=== PATIENT | male | born 1945 | race Caucasian/White ===

== ENCOUNTER 2021-07-08 10:56 | Inpatient (IN) | payer OTHER ==
[~2021-07-08] VITALS: Ht 190.5 cm; Wt 128.2 kg
[2021-07-08 11:31] LABS: BASOPHILS ABSOLUTE AUTO 0.06 K/mm3 (0.00-0.23); BASOPHILS PERCENT AUTO 1 % (0-2); EOSINOPHILS ABSOLUTE AUTO 0.41 K/mm3 (0.00-0.68); EOSINOPHILS PERCENT AUTO 4 % (0-6); Hematocrit 41.5 % (37.0-53.0); Hemoglobin 14.3 g/dL (13.5-17.5); IMMATURE GRAN ABSOLUTE AUTO 0.09 K/mm3 (0.00-0.10); IMMATURE GRAN PERCENT AUTO 1 % (0-1); LYMPHOCYTES ABSOLUTE AUTO 3.58 K/mm3 (0.84-5.20); LYMPHOCYTES PERCENT AUTO 31 % (21-46); MONOCYTES ABSOLUTE AUTO 0.75 K/mm3 (0.16-1.47); MONOCYTES PERCENT AUTO 7 % (4-13); Mean Corpuscular HGB 30.2 pg (26.0-34.0); Mean Corpuscular HGB Conc 34.5 g/dL (31.5-36.5); Mean Corpuscular Volume 88 fL (80-100); NEUTROPHILS ABSOLUTE AUTO 6.65 K/mm3 (1.96-9.15); NEUTROPHILS PERCENT AUTO 58 % (41-73); Platelet Count 186 K/mm3 (150-400); RDW Standard Deviation 42.3 fL (35.1-46.3); Red Blood Cell Count 4.73 M/mm3 (4.30-5.90); White Blood Cell Count 11.54 K/mm3 (4.00-11.30)
[2021-07-08 11:52] LABS: Anion Gap 9 mmol/L (6-16); Blood Urea Nitrogen 21 mg/dL (8-24); Bun/Creatinine Ratio 19.1 (12.0-20.0); CO2, Blood 24 mmol/L (21-32); Calcium, Blood 8.7 mg/dL (8.5-10.1); Chloride, Blood 102 mmol/L (98-108); Glomerular Filtration Rate >60 (60-); Glucose, Blood 169 mg/dL (70-99); Magnesium, Blood 1.7 mg/dL (1.6-2.4); Potassium, Blood 3.8 mmol/L (3.5-5.5); Sodium, Blood 135 mmol/L (136-145); Troponin I <0.015 ng/mL (0.000-0.040)
[2021-07-08] MEDS ORDERED: CHLO25B PO (13:51)
[2021-07-08] MEDS ORDERED: LISI20 PO (13:52)
[2021-07-08] MEDS ORDERED: Flonase 0.05% N16 GM (13:52)
[2021-07-08] MEDS ORDERED: METO25ER PO (13:52)
[2021-07-08] MEDS ORDERED: Vitamin D1000 UNI1 PO (15:06)
[2021-07-08] MEDS ORDERED: STIOLTO RESPIMAT4 G1 INH (15:07)
[2021-07-08] MEDS ORDERED: XARELTO20 MG PO (15:08)
[2021-07-08] MEDS ORDERED: TAMS.4ER PO (15:08)
[2021-07-08 17:08] LABS: Source, Urine Clean Catch
[2021-07-08 17:21] LABS: Bilirubin, Urine Neg (Neg); Blood, Urine 1+ (Neg); Color, Urine Yellow (P-Yellow); Glucose Qualitative, Urine Neg (Neg); Ketones, Urine Neg (Neg); Leukocyte Esterase, Urine 3+ (Neg); Nitrite, Urine Neg (Neg); Protein, Urine Neg (Neg); Urobilinogen, Urine NORM (Normal)
[2021-07-08 17:31] LABS: Appearance, Urine Hazy (Clear)
[2021-07-08 17:36] LABS: White Blood Cells, Urine 25-50 /hpf (0-5)
[2021-07-08 17:38] LABS: Bacteria Few /hpf; Squamous Epithelial Cells Few /hpf (Few)
--- NOTE | 2021-07-08 18:10 | NUR ---
ADMIT NOTE RECEIVED REPORT FROM EDWAR ESCALANTE IN ED. PT TO ROOM AT APPROX 1537. WHEN PT TO ROOM ATTACHED TO TELE AND IN ROOM MONITORING; PER WOOL BUYER PT VTACH WITH INTERMITTENT AFIB; EKG OBTAINED; DR VAUGHN AT BEDSIDE, AFIB WITH ABBERANCY HR 120-160'S. BP STABLE. PT A&Ox4; CALM AND COOPERATIVE WITH CARE. PT DENIES PAIN, CHEST PAIN/PRESSURE, SOB, NAUSEA, AND DIZZINESS. SPO2 >90% ON RA. ABD MODERATE DISTENDED (PT STATES NORMAL), SOFT, NONTENDER, BT HYPOACTIVE. OTHER VSS. AMIO GTT STARTED. IV MAG INFUSING. PT RECEIVED PO POTASSIUM AND ASPIRIN. PT HAS PACEMAKER NOTED TO LEFT CHEST WALL. NO OTHER ACUTE CHANGES NOTED. WILL CONTINUE TO MONITOR UNTIL REPORT GIVEN TO ONCOMING RN.
[2021-07-08 18:28] LABS: SARS-Cov-2 (COVID-19) PCR, MMC NEGATIVE (NEGATIVE)
--- NOTE | 2021-07-08 19:21 | NUR ---
NOTIFIED DR VAUGHN OF HR AND BP; NEW ORDERS ENTERED.
--- NOTE | 2021-07-08 21:43 | NUR ---
ASSUMED CARE OF PATIENT AT APPROXIMATELY 1905 FROM PEDRO Davison RN. PATIENT ALERT AND ORIENTED; BEDREST DUE TO HEART RATE. PATIENT DENIES CP/PRESSURE, PAIN, DIZZINESS, NAUSEA OR SHORTNESS OF BREATH. PATIENT REPORTS IF HE GETS UP HE WOULD GET SHORT OF BREATH. VTACH/AFIB ON TELE; OXYGEN SATURATION ABOVE 90% ON ROOM AIR. PATIENT REPORTS CHRONIC NUMBNESS AND TINGLING IN FEET. AMIODARONE GTT PER ORDER. 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 USES URINAL IN BED.
[2021-07-09 03:56] LABS: BASOPHILS ABSOLUTE AUTO 0.07 K/mm3 (0.00-0.23); BASOPHILS PERCENT AUTO 1 % (0-2); EOSINOPHILS ABSOLUTE AUTO 0.46 K/mm3 (0.00-0.68); EOSINOPHILS PERCENT AUTO 3 % (0-6); Hematocrit 39.2 % (37.0-53.0); Hemoglobin 13.8 g/dL (13.5-17.5); IMMATURE GRAN ABSOLUTE AUTO 0.09 K/mm3 (0.00-0.10); IMMATURE GRAN PERCENT AUTO 1 % (0-1); LYMPHOCYTES ABSOLUTE AUTO 5.99 K/mm3 (0.84-5.20); LYMPHOCYTES PERCENT AUTO 42 % (21-46); MONOCYTES ABSOLUTE AUTO 1.06 K/mm3 (0.16-1.47); MONOCYTES PERCENT AUTO 7 % (4-13); Mean Corpuscular HGB 30.9 pg (26.0-34.0); Mean Corpuscular HGB Conc 35.2 g/dL (31.5-36.5); Mean Corpuscular Volume 88 fL (80-100); Mean Platelet Volume 11.7 fL (9.1-12.4); NEUTROPHILS ABSOLUTE AUTO 6.64 K/mm3 (1.96-9.15); NEUTROPHILS PERCENT AUTO 46 % (41-73); Platelet Count 175 K/mm3 (150-400); RDW Coefficient Variation 13.3 % (11.7-14.2); Red Blood Cell Count 4.47 M/mm3 (4.30-5.90); White Blood Cell Count 14.31 K/mm3 (4.00-11.30)
[2021-07-09 04:09] LABS: International Normalized Ratio 1.07; Prothrombin Time Results 11.2 Sec (9.7-11.5)
[2021-07-09 04:16] LABS: Alanine Aminotransfer (ALT/SGP 33 U/L (12-78); Albumin, Blood 3.3 g/dL (3.4-5.0); Albumin/Globulin Ratio 1.1 (0.8-1.8); Alk Phos 30 U/L (50-136); Anion Gap 8 mmol/L (6-16); Aspartate Aminotrans (AST/SGOT 22 U/L (12-37); Bilirubin, Total 0.7 mg/dL (0.1-1.0); Blood Urea Nitrogen 23 mg/dL (8-24); CO2, Blood 25 mmol/L (21-32); Calcium, Blood 8.5 mg/dL (8.5-10.1); Chloride, Blood 102 mmol/L (98-108); Creatinine, Blood 1.15 mg/dL (0.60-1.20); Glomerular Filtration Rate >60 (60-); Glucose, Blood 138 mg/dL (70-99); Magnesium, Blood 2.2 mg/dL (1.6-2.4); Potassium, Blood 3.8 mmol/L (3.5-5.5); Sodium, Blood 135 mmol/L (136-145); Total Protein, Blood 6.3 g/dL (6.4-8.2)
--- NOTE | 2021-07-09 06:08 | NUR ---
PATIENT SLEPT ABOUT FOUR HOURS OR LESS. HEART RATE TRENDING IN 70-80'S CURRENTLY; RYTHYM IMPROVED. PATIENT WAS ASYMPTOMATIC. NO ACUTE CHANGES TO REPORT.
--- NOTE | 2021-07-09 11:07 | NUR ---
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 ANGIO ACCESSED VIA RIGHT RADIAL, 8ML AIR IN TR BAND. SITE HAS NO BLEEDING, WILL CONTINUE TO MONITOR. VSS.
--- NOTE | 2021-07-09 11:49 | NUR ---
ASSESSMENT NOTE TR BAND IN PLACE ON RIGHT RADIAL ACCESS SITE. SITE REMAINS UNCHANGED FROM PREVIOUS ASSESSMENT. WILL CONTINUE TO MONITOR.
--- NOTE | 2021-07-09 13:12 | NUR ---
IV NOTE RIGHT IV SLIGHTLY RED, PT DENIES PAIN. PER REPORT IN ER THEY INFUSED POTASSIUM THERFORE SKIN WILL BE IRRITATED. WILL CONTINUE TO MONITOR AND REMOVE IV IF NECESSARY.
--- NOTE | 2021-07-09 13:45 | NUR ---
CARE NOTE TR BAND FULLY DEFLATED AT APPROX 1340. NO ACTIVE BLEEDING NOTED. TR BAND REMAINS IN PLACE. WILL CONTINUE TO MONITOR.
--- NOTE | 2021-07-09 14:13 | NUR ---
RIGHT IV SITE MANAGEMENT IV DC'D DUE TO REDNESS/FIRMNESS AT SITE. NO LEAKING NOTED. PT DENIED PAIN AT SITE. GAUZE AND COBAN IN PLACE.
--- NOTE | 2021-07-09 15:18 | NUR ---
CARE NOTE TR BAND REMOVED 151, NO BLEEDING NOTED, SITED REMAINS CLEAN/DRY/INTACT. NO SWELLING NOTED, PT DENIES PAIN AT SITE. DISTAL EXTREMETY WARM WITH CAPILLARY REFILL 1+. SITE IS NOW COVERED W/ TAGEDERM DRESSING. WILL CONTINUE TO MONITOR SITE.
--- NOTE | 2021-07-09 17:00 | NUR ---
SHIFT SUMMARY PT REMAINS ALERT AND ORIENTED X4. HE IS PLEASANT AND COOPERATIVE WITH CARE. PT UNDERWENT DIAGNOSTIC ANDIO THIS AM APPROX 1000 AND NO OCCLUSION FOUND. RIGHT RADIAL ACCESS SITE IS NOW COVERED WITH TEGADERM. SITE IS ABSENT OF BLEEDING, SKIN APPEARS DRY, NO SWELLING NOTED. AMIODARONE INFUSION STOPPED AT APPROX 1600. PER EMAR ORDERS. LEFT IV REMAINS SALINE LOCKED. PT CONTINUES TO UTILIZE URINAL AT BEDSIDE. BROTHER WHO IS NEXT OF KIN WAS AT BEDSIDE THIS AFTERNOON. TELE MONITORING CONTINUES. NO OTHER ACUTE CHANGES NOTED. CALL LIGHT IN REACH. WILL CONTINUE TO MONITOR.
--- NOTE | 2021-07-10 18:16 | NUR ---
SHIFT SUMMARY: PT CONTINUES A&Ox4, ANSWERS QUESTIONS AND USES CALL LIGHT APPROPRIATELY. PT TO AND FROM CHILD AND YOUTH PROGRAM ASSISTANT FOR AICD PLACEMENT THIS AM, RETURNS WITH PRESSURE DRESSING IN PLACE, C/D/I AND NO SIGNS OF HEMATOMA. PT ALSO W/RT RADIAL SITE FROM ANGIOGRAM YESTERDAY, REQUIRES REMINDERS TO NOT OVER USE RT ARM FOR GETTING IN/OUT OF BED. PT MAINTAINS O2 SATS >93% ON RA. HR 60s AND PACED. PT STANDING TO USE URINAL AT BEDSIDE W/OUT DIFFICULTY. VSS. WILL CONTINUE TO MONITOR AND TREAT ACCORDINGLY UNTIL CHANGE OF SHIFT.
[2021-07-11 04:04] LABS: BASOPHILS ABSOLUTE AUTO 0.05 K/mm3 (0.00-0.23); BASOPHILS PERCENT AUTO 0 % (0-2); EOSINOPHILS PERCENT AUTO 3 % (0-6); Hematocrit 38.8 % (37.0-53.0); Hemoglobin 13.3 g/dL (13.5-17.5); IMMATURE GRAN ABSOLUTE AUTO 0.08 K/mm3 (0.00-0.10); IMMATURE GRAN PERCENT AUTO 1 % (0-1); LYMPHOCYTES ABSOLUTE AUTO 3.57 K/mm3 (0.84-5.20); LYMPHOCYTES PERCENT AUTO 29 % (21-46); MONOCYTES ABSOLUTE AUTO 0.84 K/mm3 (0.16-1.47); MONOCYTES PERCENT AUTO 7 % (4-13); Mean Corpuscular HGB 30.4 pg (26.0-34.0); Mean Corpuscular HGB Conc 34.3 g/dL (31.5-36.5); Mean Corpuscular Volume 89 fL (80-100); Mean Platelet Volume 12.1 fL (9.1-12.4); NEUTROPHILS ABSOLUTE AUTO 7.41 K/mm3 (1.96-9.15); NEUTROPHILS PERCENT AUTO 60 % (41-73); Platelet Count 114 K/mm3 (150-400); RDW Coefficient Variation 12.9 % (11.7-14.2); RDW Standard Deviation 42.2 fL (35.1-46.3); Red Blood Cell Count 4.37 M/mm3 (4.30-5.90); White Blood Cell Count 12.35 K/mm3 (4.00-11.30)
[2021-07-11 04:24] LABS: Albumin, Blood 3.1 g/dL (3.4-5.0); Anion Gap 7 mmol/L (6-16); Blood Urea Nitrogen 15 mg/dL (8-24); Bun/Creatinine Ratio 14.9 (12.0-20.0); CO2, Blood 29 mmol/L (21-32); Calcium, Blood 8.3 mg/dL (8.5-10.1); Chloride, Blood 99 mmol/L (98-108); Creatinine, Blood 1.01 mg/dL (0.60-1.20); Glomerular Filtration Rate >60 (60-); Glucose, Blood 112 mg/dL (70-99); Phosphorus, Blood 3.9 mg/dL (2.5-4.9); Potassium, Blood 3.8 mmol/L (3.5-5.5); Sodium, Blood 135 mmol/L (136-145)
[2021-07-11] MEDS ORDERED: VERA120 PO (10:48)
--- NOTE | 2021-07-11 11:34 | NUR ---
UPDATE PT PROVIDED DC INSTRUCTIONS. ALL QUESTIONS ANSWERED. IV REMOVED. PT PROVIDED WOUND CHECK INSTRUCTIONS AND APPT. PT TAKEN OUT BY [facility]
== END 2021-07-11 11:28 | disposition home or self-care (01) | DRG 225 ==
LOC: ER 10:56 → PCU 14:31
PROVIDERS: Family Medicine; Internal Medicine; Internal Medicine Cardiovascular Disease; Nurse Practitioner Acute Care; Student in an Organized Health Care Education/Training Program; ADMIT Internal Medicine
PROC: 3E02340 Introduction of Influenza Vaccine into Muscle, Percutaneous Approach (ICD-10-PCS; 2021-07-08)
PROC: B2111ZZ Fluoroscopy of Multiple Coronary Arteries using Low Osmolar Contrast (ICD-10-PCS; 2021-07-09)
PROC: 4A023N7 Measurement of Cardiac Sampling and Pressure, Left Heart, Percutaneous Approach (ICD-10-PCS; 2021-07-09)
PROC: 0JH608Z Insertion of Defibrillator Generator into Chest Subcutaneous Tissue and Fascia, Open Approach (ICD-10-PCS; principal; 2021-07-10)
PROC: 02HK3KZ Insertion of Defibrillator Lead into Right Ventricle, Percutaneous Approach (ICD-10-PCS; 2021-07-10)
PROC: 02H63KZ Insertion of Defibrillator Lead into Right Atrium, Percutaneous Approach (ICD-10-PCS; 2021-07-10)
DX: I47.2 Ventricular tachycardia (principal); E87.1 Hypo-osmolality and hyponatremia; A31.2 Disseminated mycobacterium avium-intracellulare complex (DMAC); E66.01 Morbid (severe) obesity due to excess calories; I48.91 Unspecified atrial fibrillation; D72.829 Elevated white blood cell count, unspecified; Z20.822 Contact with and (suspected) exposure to COVID-19; N40.0 Benign prostatic hyperplasia without lower urinary tract symptoms; J44.9 Chronic obstructive pulmonary disease, unspecified; Z95.0 Presence of cardiac pacemaker; Z79.899 Other long term (current) drug therapy; Z79.01 Long term (current) use of anticoagulants; Z68.35 Body mass index [BMI] 35.0-35.9, adult; R79.89 Other specified abnormal findings of blood chemistry; Z23 Encounter for immunization
CPT/HCPCS: 33233; 33249; 36415; 71045; 71046; 76937; 80048; 80053; 80069; 81001; 83735; 83880; 84145; 84443; 84484; 85025; 85610; 85730; 87086; 93005; 93010; 93306; 93454; 94762; 96374; 99152; 99153; 99285-25; A9270; C1721; C1769; C1887; C1894; C1895; J0282; J0690; J1580; J1644; J2250; J3010; J3475; J7030; J7050; J7060; Q9967; U0004